=== PATIENT | male | born 1945 | race Caucasian/White ===

== ENCOUNTER 2018-10-01 14:28 | Outpatient (CLI) | payer OTHER | END 2018-10-01 14:31 | disposition home or self-care (01) | LOC: LAB 14:28 | DX: I11.9 Hypertensive heart disease without heart failure (principal); E78.1 Pure hyperglyceridemia ==

== ENCOUNTER 2018-10-10 08:32 | Outpatient (CLI) | payer OTHER | END 2018-10-10 08:40 | disposition home or self-care (01) | LOC: TOM 08:32 | DX: I71.2 Thoracic aortic aneurysm, without rupture (principal) | CPT/HCPCS: 71270; Q9965 ==

== ENCOUNTER → 2018-10-10 10:34 | Outpatient (CLI) | payer OTHER | END | disposition home or self-care (01) | LOC: LAB 10:34 | DX: I71.2 Thoracic aortic aneurysm, without rupture (principal); Z51.81 Encounter for therapeutic drug level monitoring ==